=== PATIENT | female | born 1935 | race American Indian/Alaskan Native ===

== ENCOUNTER 2017-09-29 22:15 | Emergency (ER) | payer MEDICARE ==
[2017-09-29 23:19] LABS: Basophils # (Auto) 0.1 K/mm3 (0.0-0.1); Basophils % (Auto) 0.9 % (0.0-1.8); Eosinophils # (Auto) 0.5 K/mm3 (0.0-0.4); Eosinophils % (Auto) 4.8 % (0.0-4.3); Hematocrit 33.1 % (30.3-42.9); Hemoglobin 10.4 gm/dl (10.1-14.3); Lymphocytes # (Auto) 1.8 K/mm3 (1.2-5.4); Mean Corpuscular HGB Conc 32 % (30-34); Mean Corpuscular Hemoglobin 28 pg (28-32); Mean Corpuscular Volume 88 fl (79-97); Monocytes # (Auto) 0.7 K/mm3 (0.0-0.8); Monocytes % (Auto) 7.1 % (0.0-7.3); Platelet Count 190 K/mm3 (140-440); Red Blood Count 3.75 M/mm3 (3.65-5.03)
[2017-09-29 23:30] LABS: INR 0.92 (0.87-1.13)
[2017-09-29 23:31] LABS: Partial Thromboplastin Time 31.6 Sec. (24.2-36.6)
[2017-09-29 23:32] LABS: BUN/Creatinine Ratio 18; Blood Urea Nitrogen 34 mg/dL (7-17); Hemolysis Index 3
--- NOTE | 2017-09-30 00:19 | Cat Scan Report ---
FINAL REPORT EXAM: CT HEAD/BRAIN WO CON HISTORY: SHARP PAIN ENTIRE LEFT SIDE X 1 WEEK PRIOR CVA COMPARISON: None available. TECHNIQUE: Axial images obtained skull base through vertex. FINDINGS: No acute intracranial hemorrhage, midline shift or pathologic extra axial fluid collection. Age related volume loss with compensatory dilatation of the ventricular system and chronic small vessel ischemic disease. Otherwise, buckley-white differentiation preserved. Calvarium grossly intact. Moderate calcification of carotid siphons and right vertebral artery. Benign calcification right basal ganglia. Mild mucosal thickening of the paranasal sinuses. Mastoid air cells are clear. IMPRESSION: No grossly acute intracranial abnormality. Mild age related volume loss and chronic small vessel ischemic disease.
[2017-09-30] MEDS ORDERED: TYLENOL PO ONE (01:23)
--- NOTE | 2017-09-30 01:56 | Emergency Department Report ---
ED General Adult HPI - General Chief complaint: Extremity Problem,Nontraumatic Stated complaint: STROKE SX Time Seen by Provider: 09/30/17 01:07 Source: patient, family, RN notes reviewed Mode of arrival: Ambulatory Limitations: No Limitations - History of Present Illness Initial comments: Primary care Dr.: Dr. Garcia Past medical history: Diabetes, hypertension, constipation This is an 82-year-old female who was previously unknown to this provider. She presents to the ER with a complaint of nontraumatic left lower extremity pain which has been present since last week. The pain is achy and burning and starts in the left hip and radiates down the left lower extremity. There is no saddle anesthesia, there is no bladder or bowel retention or incontinence. Patient describes crampy abdominal pain yesterday which has since resolved. To me she denies headache, chest pain, shortness of breath, urinary symptoms. She admits to chronic paraspinal neck pain which has been present for years. To me , the patient makes no complaint of headache, weakness, numbness or unsteady gait. She does walk with a walker and had a mechanical fall 2 days ago, landing on her bilateral knees. To me, the patient makes no specific concern or complaint of having a stroke. -: Gradual Location: abdomen, left, lower extremity Quality: burning Consistency: intermittent Improves with: rest Worsens with: movement Associated Symptoms: other (please see history of present illness). denies: confusion, chest pain, cough, diaphoresis, fever/chills, headaches, loss of appetite, malaise, nausea/vomiting, rash, seizure, shortness of breath, syncope , weakness - Related Data Home Medications Medication Instructions Recorded Confirmed Last Taken ALBUTEROL NEB's [Proventil 0.083% 3 ml IH Q6H 07/17/14 10/26/14 07/08/15 NEBS] Aspirin EC [Aspirin Enteric Coated 325 mg PO QDAY 07/17/14 10/26/14 07/08/15 TAB] Cholecalciferol (Vitamin D3) 400 unit PO DAILY 07/17/14 10/26/14 07/08/15 [Vitamin D3] Furosemide [Lasix] 40 mg PO DAILY 07/17/14 10/26/14 07/08/15 Gabapentin 400 mg PO HS 07/17/14 10/26/14 07/08/15 Hydralazine HCl [hydrALAZINE] 100 mg PO TID 07/17/14 10/26/14 07/08/15 Insulin Glargine,Hum.rec.anlog 50 unit SQ QHS 07/17/14 10/20/14 07/08/15 [Lantus Solostar] Insulin Regular, Human [HumuLIN R] 7 units SQ AC 07/17/14 10/20/14 07/08/15 Ketoconazole 2% [Nizoral] 1 applicatio TP QDAY 07/17/14 10/26/14 06/30/15 Latanoprost 0.005% 1 drop OU HS 07/17/14 10/26/14 07/08/15 Metoprolol [Lopressor TAB] 100 mg PO BID 07/17/14 10/26/14 07/08/15 Polyethylene Glycol 3350 [Miralax] 1 cap PO DAILY 07/17/14 10/26/14 07/08/15 amLODIPine [Norvasc] 10 mg PO DAILY 07/17/14 10/26/14 07/08/15 traMADol [Ultram 50 MG tab] 50 mg PO BID PRN 07/17/14 10/20/14 07/08/15 Previous Rx's Medication Instructions Recorded Last Taken Type Acetaminophen [Tylenol Arthritis] 650 mg PO Q6HR PRN #30 tablet.er 09/30/17 Unknown Rx Nitrofurantoin [place]/M-Cryst 100 mg PO Q12HR #14 capsule 09/30/17 Unknown Rx [Macrobid CAP] Allergies Allergy/AdvReac Type Severity Reaction Status Date / Time No Known Allergies Allergy Verified 10/20/14 14:42 ED Review of Systems ROS: Stated complaint: STROKE SX Other details as noted in HPI ED Past Medical Hx - Past Medical History Previous Medical History?: Yes Hx Hypertension: Yes Hx Congestive Heart Failure: Yes Hx Diabetes: Yes (IDDM > 5 YEARS) Hx GERD: Yes Hx Renal Disease: Yes Hx Arthritis: Yes Hx Asthma: Yes (no recent inhaler use) - Surgical History Past Surgical History?: Yes Additional Surgical History: hysterectomy - Social History Smoking Status: Never Smoker Substance Use Type: None - Medications Home Medications: Home Medications Medication Instructions Recorded Confirmed Last Taken Type ALBUTEROL NEB's [Proventil 0.083% 3 ml IH Q6H 07/17/14 10/26/14 07/08/15 History NEBS] Aspirin EC [Aspirin Enteric Coated 325 mg PO QDAY 07/17/14 10/26/14 07/08/15 History TAB] Cholecalciferol (Vitamin D3) 400 unit PO DAILY 07/17/14 10/26/14 07/08/15 History [Vitamin D3] Furosemide [Lasix] 40 mg PO DAILY 07/17/14 10/26/14 07/08/15 History Gabapentin 400 mg PO HS 07/17/14 10/26/14 07/08/15 History Hydralazine HCl [hydrALAZINE] 100 mg PO TID 07/17/14 10/26/14 07/08/15 History Insulin Glargine,Hum.rec.anlog 50 unit SQ QHS 07/17/14 10/20/14 07/08/15 History [Lantus Solostar] Insulin Regular, Human [HumuLIN R] 7 units SQ AC 07/17/14 10/20/14 07/08/15 History Ketoconazole 2% [Nizoral] 1 applicatio TP QDAY 07/17/14 10/26/14 06/30/15 History Latanoprost 0.005% 1 drop OU HS 07/17/14 10/26/14 07/08/15 History Metoprolol [Lopressor TAB] 100 mg PO BID 07/17/14 10/26/14 07/08/15 History Polyethylene Glycol 3350 [Miralax] 1 cap PO DAILY 07/17/14 10/26/14 07/08/15 History amLODIPine [Norvasc] 10 mg PO DAILY 07/17/14 10/26/14 07/08/15 History traMADol [Ultram 50 MG tab] 50 mg PO BID PRN 07/17/14 10/20/14 07/08/15 History Acetaminophen [Tylenol Arthritis] 650 mg PO Q6HR PRN #30 tablet.er 09/30/17 Unknown Rx Nitrofurantoin [place]/M-Cryst 100 mg PO Q12HR #14 capsule 09/30/17 Unknown Rx [Macrobid CAP] ED Physical Exam - General Limitations: No Limitations, Other (the patient has poor ambulatory status at baseline and typically walks with a walker) General appearance: alert, in no apparent distress - Head Head exam: Present: atraumatic, normocephalic - Eye Eye exam: Present: normal appearance, EOMI, other (visual acuity intact to finger counting, color perception, reading at a close distance). Absent: nystagmus - ENT ENT exam: Present: normal exam, normal orophraynx, mucous membranes moist, normal external ear exam - Neck Neck exam: Present: normal inspection, full ROM. Absent: tenderness, meningismus - Respiratory Respiratory exam: Present: normal lung sounds bilaterally. Absent: respiratory distress, wheezes, rales, rhonchi, stridor - Cardiovascular Cardiovascular Exam: Present: regular rate, normal rhythm, normal heart sounds. Absent: systolic murmur, diastolic murmur, rubs, gallop - GI/Abdominal GI/Abdominal exam: Present: soft, normal bowel sounds. Absent: distended, tenderness, guarding, rebound, rigid, pulsatile mass - Extremities Exam Extremities exam: Present: normal inspection, full ROM. Absent: pedal edema, joint swelling, calf tenderness - Back Exam Back exam: Present: normal inspection, full ROM, other (2+ pulses noted in the bilateral upper and lower extremities. The compartments are soft. There is no pain with passive range of motion.). Absent: tenderness, CVA tenderness (R), paraspinal tenderness, vertebral tenderness - Neurological Exam Neurological exam: Present: alert, oriented X3, abnormal gait (the patient is able to walk gently and slowly with a one-person assist), other (Extraocular movements intact. Tongue midline. Chronic right-sided facial droop. Facial sensation intact to light touch in the V1, V2, V3 distribution bilaterally. 5 and 5 strength in 4 extremities.. Sensation is intact to light touch in 4 extremities.). Absent: motor sensory deficit - Psychiatric Psychiatric exam: Present: normal affect, normal mood - Skin Skin exam: Present: warm, dry, intact, normal color. Absent: rash ED Course Vital Signs 09/29/17 09/30/17 09/30/17 22:30 02:07 02:58 Temperature 98.4 F 97.4 F L Pulse Rate 74 65 68 Respiratory 18 16 Rate Blood Pressure 184/69 210/90 Blood Pressure 225/91 [Right] O2 Sat by Pulse 96 94 Oximetry 09/30/17 09/30/17 09/30/17 03:07 04:22 04:29 Temperature Pulse Rate 68 65 Respiratory 16 Rate Blood Pressure 216/84 234/89 Blood Pressure [Right] O2 Sat by Pulse Oximetry 09/30/17 05:04 Temperature Pulse Rate 65 Respiratory 16 Rate Blood Pressure Blood Pressure 196/80 [Right] O2 Sat by Pulse Oximetry - Reevaluation(s) Reevaluation #1: 09/30/17 02:01 Differential diagnosis, including when not limited to: AAA, urinary tract infection, radiculopathy, kidney stone, constipation, arthritis Assessment and plan: 62-year-old female who endorses a complaint of left leg pain that is radicular to me, she has appropriate strength and sensation in the bilateral lower extremities with no evidence of epidural compression syndrome and walks with a one-person assist. To me she specifically denies headache, and she also denies symptoms that would be suggestive of a stroke. She has chronic renal insufficiency with mild hyperkalemia. She's been found to have constipation in the past. Her abdomen is soft and benign. Given advanced age and numerous symptoms, noncontrast CT scan of the abdomen and pelvis is ordered. Acetaminophen is ordered for pain control, a urinalysis is pending. assuming noncontrast CT scan demonstrates no acute disease in the abdomen/ pelvis, patient will be given Kayexalate. Reevaluation #2: 09/30/17 03:31 Elevated blood pressure is appreciated. Noncontrast CT scan of the brain is negative for acute findings, and CT scan of the abdomen and pelvis demonstrates chronic findings with no acute emergent disease or pathology. Please see the [employer] clinical policy on hypertension that is not symptomatically. Urinalysis suggested asymptomatic bacteriuria versus urinary tract infection. Given her advanced age, patient will be covered empirically. Reevaluation #3: 09/30/17 05:[address] scan negative for acute findings. Numerous incidental findings and chronic findings noted. Blood pressures improved. Patient observed in the ER for hours without clinical deterioration. Patient will be discharged at this time. Family verbalized understanding to discharge instructions. ED Medical Decision Making - Lab Data Result diagrams: 09/29/17 22:53 09/29/17 22:53 Vital Signs 09/29/17 22:30 Temperature 98.4 F Pulse Rate 74 Respiratory 18 Rate Blood Pressure 184/69 O2 Sat by Pulse 96 Oximetry Lab Results 09/29/17 09/29/17 09/29/17 Range/Units 22:53 22:53 22:53 WBC 9.5 (4.5-11.0) K/mm3 RBC 3.75 (3.65-5.03) M/mm3 Hgb 10.4 (10.1-14.3) gm/dl Hct 33.1 (30.3-42.9) % MCV 88 (79-97) fl MCH 28 (28-32) pg MCHC 32 (30-34) % RDW 15.0 (13.2-15.2) % Plt Count 190 (140-440) K/mm3 Lymph % (Auto) 19.0 (13.4-35.0) % [place] % (Auto) 7.1 (0.0-7.3) % Eos % (Auto) 4.8 H (0.0-4.3) % Baso % (Auto) 0.9 (0.0-1.8) % Lymph # 1.8 (1.2-5.4) K/mm3 [place] # 0.7 (0.0-0.8) K/mm3 Eos # 0.5 H (0.0-0.4) K/mm3 Baso # 0.1 (0.0-0.1) K/mm3 Seg Neutrophils % 68.2 (40.0-70.0) % Seg Neutrophils # 6.5 (1.8-7.7) K/mm3 PT 12.8 (12.2-14.9) Sec. INR 0.92 (0.87-1.13) APTT 31.6 (24.2-36.6) Sec. Thrombin Time (15.1-19.6) Sec. Sodium 142 (137-145) mmol/L Potassium 5.4 H (3.6-5.0) mmol/L Chloride 105.3 (98-107) mmol/L Carbon Dioxide 25 (22-30) mmol/L Anion Gap 17 mmol/L BUN 34 H (7-17) mg/dL Creatinine 1.9 H (0.7-1.2) mg/dL Estimated GFR 31 ml/min BUN/Creatinine Ratio 18 % Glucose 254 H (65-100) mg/dL Calcium 9.0 (8.4-10.2) mg/dL Total Creatine Kinase (30-135) units/L Troponin T < 0.010 (0.00-0.029) ng/mL 09/29/17 09/30/17 Range/Units 22:53 01:30 WBC (4.5-11.0) K/mm3 RBC (3.65-5.03) M/mm3 Hgb (10.1-14.3) gm/dl Hct (30.3-42.9) % MCV (79-97) fl MCH (28-32) pg MCHC (30-34) % RDW (13.2-15.2) % Plt Count (140-440) K/mm3 Lymph % (Auto) (13.4-35.0) % [place] % (Auto) (0.0-7.3) % Eos % (Auto) (0.0-4.3) % Baso % (Auto) (0.0-1.8) % Lymph # (1.2-5.4) K/mm3 [place] # (0.0-0.8) K/mm3 Eos # (0.0-0.4) K/mm3 Baso # (0.0-0.1) K/mm3 Seg Neutrophils % (40.0-70.0) % Seg Neutrophils # (1.8-7.7) K/mm3 PT (12.2-14.9) Sec. INR (0.87-1.13) APTT (24.2-36.6) Sec. Thrombin Time 17.4 (15.1-19.6) Sec. Sodium (137-145) mmol/L Potassium (3.6-5.0) mmol/L Chloride (98-107) mmol/L Carbon Dioxide (22-30) mmol/L Anion Gap mmol/L BUN (7-17) mg/dL Creatinine (0.7-1.2) mg/dL Estimated GFR ml/min BUN/Creatinine Ratio % Glucose (65-100) mg/dL Calcium (8.4-10.2) mg/dL Total Creatine Kinase 42 (30-135) units/L Troponin T (0.00-0.029) ng/mL - EKG Data EKG shows normal: sinus rhythm - EKG Data When compared to previous EKG there are: previous EKG unavailable Interpretation: no acute changes 09/30/17 02:00 Sinus, 69 bpm, low voltage, left axis deviation, poor wave progression, or First-degree AV block, motion artifact in the lateral leads, abnormal EKG, but morphologically consistent with ST elevation myocardial infarction. Unchanged from prior EKG from July 2011. - Radiology Data Radiology results: report reviewed, image reviewed Noncontrast CT scan of the brain is negative for acute disease, chronic findings noted rint Report Referring Physician: SAQIB DENISE Patient Name: TORRI VENCES Date of : 1935 Sex: Female Report Date: 2017-09-30 Report Status: Finalized Findings [facility] [address] [place] [address] Cat Scan Report Signed Patient: TORRI VENCES MR#: [id number] : 1935 Acct:[id number] Age/Sex: 82 / F ADM Date: 09/29/17 Loc: ED Attending Dr: Ordering Physician: SAQIB DENISE MD Date of Service: 09/30/17 Procedure(s): CT abdomen pelvis wo con Accession Number(s): [id number] cc: SAQIB DENISE MD FINAL REPORT EXAM: CT ABDOMEN PELVIS WO CON HISTORY: abd pain back pain COMPARISON: CT of the abdomen pelvis July 2014. TECHNIQUE: Contiguous axial images were obtained. Additional sagittal and coronal reformatted images were obtained. FINDINGS: Trace bilateral pleural effusions at the lung bases. Mild linear atelectasis or scarring at the lung bases. Moderate hiatal hernia. No calcified gallstones. Liver, spleen, pancreas are grossly unremarkable. Nodular thickening of the adrenal glands. No nephrolithiasis. Bilateral perinephric fat stranding stable from prior exam compatible sequelae of prior inflammation. Mild extrarenal pelvis on the right stable from prior study. No ureteral or urinary bladder calculi. Urinary bladder is unremarkable. Uterus is surgically absent. No reason not visualized may be surgically absent. Small umbilical hernia containing fat only. No free fluid or lymphadenopathy in the pelvic cavity. Moderate stool in the colon. Large and small bowel loops normal in caliber. Appendix is not visualized. However, there is no pericecal stranding or fluid to suggest acute inflammation. Mild degenerative changes of bilateral hips. Stable degenerative changes of the lumbar spine. Severe canal stenosis L4-L5 level due to broad-based disc bulge, hypertrophy of the ligament flavum facet changes. Moderate to severe right foraminal narrowing at that level. IMPRESSION: No gross focal inflammatory changes of the abdomen and pelvis. Trace bilateral pleural effusions at the lung bases with mild linear scarring or atelectasis. Stable moderate hiatal hernia. Large and small bowel loops normal in caliber. Appendix is not visualized. However, there is no pericecal stranding or fluid to suggest acute inflammation. Stable degenerative changes of the lumbar spine. Findings are most pronounced at the L4-L5 level with there is severe canal stenosis and moderate severe right foraminal narrowing. Transcribed By: LMA Dictated By: FERNY MEJIA MD Electronically Authenticated By: FERNY MEJIA MD Signed Date/Time: 09/30/17 0230 Critical care attestation.: If time is entered above; I have spent that time in minutes in the direct care of this critically ill patient, excluding procedure time. ED Disposition Clinical Impression: Radiculopathy, Elevated blood pressure reading, History of abdominal pain Disposition: -01 TO HOME OR SELFCARE Is pt being admited?: No Does the pt Need Aspirin: No Condition: Good Additional Instructions: Rest, and avoid heavy lifting. Avoid strenuous physical activity. Take the pain medication, antibiotic as directed. Please note that blood pressure was quite elevated. Initially followed up by primary care doctor within the next 7- 10 days. Long-term complications of hypertension and elevated blood pressure include stroke, heart attack, disability, , paralysis, loss of quality of life. Return to the ER right away with new pAin, worsened pain, migration of pain, fevers, chills, lethargy, irritability, projectile vomiting, change in mental status, confusion, inability to tolerate liquid feeds. Prescriptions: Acetaminophen [Tylenol Arthritis] 650 mg PO Q6HR PRN #30 tablet.er PRN Reason: Pain Nitrofurantoin [place]/M-Cryst [Macrobid CAP] 100 mg PO Q12HR #14 capsule Referrals: SAQIB YOUSSEF MD [Primary Care Provider] - 3-5 Days
--- NOTE | 2017-09-30 02:35 | Cat Scan Report ---
FINAL REPORT EXAM: CT ABDOMEN PELVIS WO CON HISTORY: abd pain back pain COMPARISON: CT of the abdomen pelvis July 2014. TECHNIQUE: Contiguous axial images were obtained. Additional sagittal and coronal reformatted images were obtained. FINDINGS: Trace bilateral pleural effusions at the lung bases. Mild linear atelectasis or scarring at the lung bases. Moderate hiatal hernia. No calcified gallstones. Liver, spleen, pancreas are grossly unremarkable. Nodular thickening of the adrenal glands. No nephrolithiasis. Bilateral perinephric fat stranding stable from prior exam compatible sequelae of prior inflammation. Mild extrarenal pelvis on the right stable from prior study. No ureteral or urinary bladder calculi. Urinary bladder is unremarkable. Uterus is surgically absent. No reason not visualized may be surgically absent. Small umbilical hernia containing fat only. No free fluid or lymphadenopathy in the pelvic cavity. Moderate stool in the colon. Large and small bowel loops normal in caliber. Appendix is not visualized. However, there is no pericecal stranding or fluid to suggest acute inflammation. Mild degenerative changes of bilateral hips. Stable degenerative changes of the lumbar spine. Severe canal stenosis L4-L5 level due to broad-based disc bulge, hypertrophy of the ligament flavum facet changes. Moderate to severe right foraminal narrowing at that level. IMPRESSION: No gross focal inflammatory changes of the abdomen and pelvis. Trace bilateral pleural effusions at the lung bases with mild linear scarring or atelectasis. Stable moderate hiatal hernia. Large and small bowel loops normal in caliber. Appendix is not visualized. However, there is no pericecal stranding or fluid to suggest acute inflammation. Stable degenerative changes of the lumbar spine. Findings are most pronounced at the L4-L5 level with there is severe canal stenosis and moderate severe right foraminal narrowing.
[2017-09-30] MEDS ORDERED: CATAPRES PO ONE (02:56)
[2017-09-30] MEDS ORDERED: CATAPRES ONE (02:56)
[2017-09-30 02:59] LABS: Bilirubin,Urine NEG (Negative); Blood,Urine NEG (Negative); Color,Urine Yellow (Yellow); Urobilinogen,Urine < 2.0 mg/dL (<2.0)
[2017-09-30] MEDS ORDERED: KIONEX PO ONE (03:32)
[2017-09-30] MEDS ORDERED: NORVASC PO ONE (03:48)
[2017-09-30] MEDS ORDERED: APRESOLINE PO ONE (03:48)
[2017-09-30 05:04] VITALS: BP 196/80
== END 2017-09-30 05:29 | disposition home or self-care (01) ==
LOC: ED 22:15
DX: M54.10 Radiculopathy, site unspecified (principal); I13.0 Hypertensive heart and chronic kidney disease with heart failure and stage 1 through stage 4 chronic kidney disease, or unspecified chronic kidney disease; E11.22 Type 2 diabetes mellitus with diabetic chronic kidney disease; N18.9 Chronic kidney disease, unspecified; M19.90 Unspecified osteoarthritis, unspecified site; K21.9 Gastro-esophageal reflux disease without esophagitis; J45.909 Unspecified asthma, uncomplicated; Z90.710 Acquired absence of both cervix and uterus; R51 Headache; Z79.4 Long term (current) use of insulin; Z79.82 Long term (current) use of aspirin
CPT/HCPCS: 36415; 70450; 74176; 80048; 81001; 82550; 84484; 85025; 85610; 85670; 85730; 87086; 93005; 93010; 99284